=== PATIENT | female | born 1980 | race African-American/Black ===

== ENCOUNTER 2018-02-02 17:21 | Emergency (ER) | payer OTHER ==
[~2018-02-02] VITALS: Ht 165.1 cm; Wt 85.0 kg
[2018-02-02] MEDS ORDERED: SODIUM CHLORIDE 0.9% 1,000 ML IV ONE ×2 (18:56→22:30)
[2018-02-02 19:49] LABS: HEMATOCRIT. 29.3 % (36.0-48.0); HEMOGLOBIN. 8.6 g/dL (12.0-16.0); MEAN CORPUSCULAR HEMOGLOBIN 18.6 pg (28.0-32.0); MEAN CORPUSCULAR VOLUME 63.4 fL (81.0-99.0); PLATELET 496 x1000/uL (130-400); RED BLOOD CELL COUNT 4.62 mill/uL (4.2-5.4); RED CELL DISTRIBUTION WIDTH 18.7 % (11.6-14.6)
[2018-02-02 19:52] LABS: CHLORIDE 104 mEq/L (98-107); PROTHROMBIN TIME 10.9 sec (9.4-11.6)
[2018-02-02 19:56] LABS: ETHANOL BLOOD < 10 mg/dL
[2018-02-02 20:32] LABS: PLATELET ESTIMATE SLIGHTLY INCREASED
[2018-02-02 23:36] VITALS: BP 144/88
== END 2018-02-02 23:38 | disposition home or self-care (01) ==
LOC: ER 18:01
DX: T40.7X1A Poisoning by cannabis (derivatives), accidental (unintentional), initial encounter (principal); R00.0 Tachycardia, unspecified; E86.0 Dehydration; R00.2 Palpitations; Z90.49 Acquired absence of other specified parts of digestive tract; Y92.018 Other place in single-family (private) house as the place of occurrence of the external cause
CPT/HCPCS: 36415; 80053; 85025; 85610; 93005; 96360; 99285; G0482; J7030